=== PATIENT | female | born 1990 | race Caucasian/White ===

== ENCOUNTER 2020-02-24 14:16 | Outpatient (REF) | payer OTHER, SELFPAY | END 2020-02-24 14:17 | disposition home or self-care (01) | LOC: HO.LAB 14:16 | PROVIDERS: Visit Provider Internal Medicine | DX: Z20.828 Contact with and (suspected) exposure to other viral communicable diseases (principal) | CPT/HCPCS: 36415; C9803; U0003 ==

== ENCOUNTER 2020-08-07 17:50 | Emergency (ER) | payer OTHER, SELFPAY ==
[2020-08-07 18:16] VITALS: BP 135/78; PULSE 93; RESP 18; TEMP 36.8; O2SAT 98; BMI 40.7
--- NOTE | 2020-08-07 19:00 | ED_ITS ---
HPI - General Adult General Chief complaint: General Medical Stated complaint: Earache Source: patient Mode of arrival: ambulatory Limitations: no limitations History of Present Illness HPI narrative: Patient presents to ED for right ear pain. Patient states yesterday she went swimming and now she is having right ear pain. Patient states history of recurring ear infections and some a time due to her swim in the pool. Patient denies any bleeding or discharge from the pole Related Data Previous Rx's Medication Instructions Recorded amoxicillin-pot clavulanate 1 tab PO Q12H #20 tab 08/07/20 [Augmentin] naproxen 500 mg PO BID PRN #20 tab 08/07/20 [id number]-thonzonium 4 drp OTIC (EAR) RIGHT QID 7 Days 08/07/20 [Cortisporin-TC] #10 ml Allergies Allergy/AdvReac Type Severity Reaction Status Date / Time No Known Allergies Allergy Unverified 11/04/19 16:20 [No Known Allergies*] Review of Systems Review of Systems: Yes all other systems are reviewed and are negative Constitutional: Constitutional: Reports as per HPI and Reports no additional constitutional complaints Eyes: Eyes: Reports as per HPI and Reports no additional eye complaints ENT: Reports system reviewed and no additional complaints, except as documented, Reports as per HPI and Reports otalgia Cardiovascular: Cardiovascular: Reports as per HPI and Reports no additional cardiovascular complaints Respiratory: Respiratory: Reports as per HPI and Reports no additional respiratory complaints Gastrointestinal: Gastrointestinal: Reports as per HPI and Reports no additional gastrointestinal complaints Musculoskeletal: Musculoskeletal: Reports no additional musculoskeletal complaints and Reports as per HPI Neurologic: Reports system reviewed and no additional complaints, except as documented and Reports as per HPI Psychiatric: Psychiatric: Reports no additional psychiatric complaints and Reports as per HPI [facility] Past Medical History Medical History (Updated 08/07/20 @ 19:06 by MERRICK Kimble) No known health problems Social History Social History Advance Directives: No Advance Directives Information Provided: Yes Patient : No Physical Exam Vital Signs: Vital Signs: Last Vital Signs Temp 98.2 F 08/07/20 18:16 Pulse 93 08/07/20 18:16 Resp 18 08/07/20 18:16 BP 135/78 08/07/20 18:16 Pulse Ox 98 08/07/20 18:16 Body Mass Index 40.7 Const: General: cooperative, healthy appearing, comfortable, no acute distress, well developed, alert, awake and Physically active Orientation/consciousness: patient oriented x3 HENMT: Other: Not able to visualize right TM due to ear canal swelling. Head: Yes normal to inspection, Yes No palpable skull fracture present, Yes normocephalic and Yes atraumatic Ears: Abnormal EAC present erythema and edema Eyes: General: appearance normal, both eyes and all related structures Neck: Neck: Yes normal visual inspection, Yes full ROM, Yes no lymphadenopathy, Yes no meningeal signs, Yes trachea midline, Yes supple and No tender Chest: Chest palpation & inspection: normal inspection of the chest and normal palpation of entire chest wall Resp: Effort & Inspection: normal respiratory effort and able to speak in complete sentences Auscultation: clear to auscultation bilaterally Cardio: Jugular venous distension: no JVD Heart sounds: S1 normal heart sound present and S2 normal heart sound present GI: Inspection: Yes normal to inspection and No abdominal wall ecchymosis Palpation (GI): Soft to palpation, not firm, nontender, no guarding and not rigid : General: No CVA tenderness and Yes no CVA tenderness Back/Spine/Pelvis: Back: no CVA tenderness, No CVA tenderness and No back tenderness Skin: General skin exam: no rashes or lesions noted and elasticity normal Neuro: General: patient oriented x3, gait normal, no meningeal signs and CN's II-XI intact bilaterally Cranial nerves: Yes CN's II-XII intact bilaterally Extrem: General: Yes normal to inspection and Yes full ROM Psych: Appearance: grossly normal, well kempt and not disheveled Course Course Course Narrative: Patient will be treated as ear infection. Reevaluation(s) Reevaluation #1: Patient to be discharged with antibiotics Time: 19:04 Medical Decision Making [facility] Narrative Medical decision making narrative: Otitis media otitis externa Discharge Plan Discharge Clinical Impression: Otitis externa, Otitis media Patient Disposition: Home, Self-Care Instructions: Ear Infection (ED) Additional Instructions: Return to the ED for worsening ear pain, ear drainage, severe pain, swelling in front of behind ear, redness, headache, dizziness, nausea, vomiting, or any other concerning symptoms. Pleaese follow up with PCP. Prescriptions: New amoxicillin-pot clavulanate [Augmentin] 875-125 mg tablet 1 tab PO Q12H Qty: 20 RF: 0 Cortisporin-TC 3.3-3-10-0.5 mg/mL drops,suspension 4 drp otic (ear) right QID 7 Days Qty: 10 RF: 0 naproxen 500 mg tablet 500 mg PO BID PRN (Reason: pain) Qty: 20 RF: 0 Interventions: ED Discharge Assessment Last Done: 08/07/20 19:23 Discharge Date/Time: 08/07/20 19:25 Print Language: Taiwanese
== END 2020-08-07 19:25 | disposition home or self-care (01) ==
PROVIDERS: Emergency Provider Emergency Medicine
DX: H60.91 Unspecified otitis externa, right ear (principal); H66.91 Otitis media, unspecified, right ear
CPT/HCPCS: 99283

== ENCOUNTER 2021-05-04 21:05 | Emergency (ER) | payer OTHER, SELFPAY ==
[2021-05-04 22:05] VITALS: BP 139/61; PULSE 70; TEMP 36.9; O2SAT 97; BMI 34.5
[2021-05-04] MEDS: Ondansetron ODT 4 MG TAB.RAPDIS TRANSLINGU (22:19)
[2021-05-04 22:31] LABS: MANUAL DIFF FLAG NO
[2021-05-04 22:32] LABS: Basophils Absolute Auto 0.1 X10*3/uL (0.0-0.2); Basophils Percent Auto 0.3 % (0-2); Eosinophils Percent Auto 0.1 % (0-4); Hematocrit 46.7 % (37.0-47.0); Hemoglobin 15.4 g/dl (12.0-16.0); Imm Gran Abs Auto 0.08 X10*3/uL (0.00-0.03); Imm Gran Pct Auto 0.5 % (0.0-0.4); Lymphocytes Percent Auto 5.5 % (20-40); Mean Corpuscular Hemoglobin 28.3 pg (27.0-33.0); Mean Corpuscular Volume 85.7 fL (80.0-98.0); Mean Platelet Volume 9.7 fL (9.4-12.3); Monocytes Absolute Auto 0.7 X10*3/uL (0.1-1.2); Monocytes Percent Auto 3.9 % (2-11); Neutrophils Absolute Auto 15.8 x10*3/uL (2.0-8.3); Neutrophils Percent Auto 89.7 % (45-73); Platelet Count 316 X10*3/uL (160-400); Red Blood Count 5.45 X10*6/uL (4.20-5.50); White Blood Count 17.6 X10*3/uL (4.8-10.8)
[2021-05-04 22:45] LABS: Anion Gap 20 (12-20); Blood Urea Nitrogen 13 mg/dL (9-16); Calcium 10.3 mg/dL (8.4-10.2); Carbon Dioxide 22 mmol/L (22-29); Chloride 106 mmol/L (96-108); Creatinine Clr Calc Pharmacy 103.5; Estimated Glomerular Filt Rate > 60; Glucose Random 124 mg/dL (60-115); Sodium 144 mmol/L (135-145)
[2021-05-04 22:47] LABS: COVID-19 Test Negative (Negative)
[2021-05-04 23:59] VITALS: BP 133/104; PULSE 66; RESP 18; TEMP 36.9; O2SAT 96
--- NOTE | 2021-05-05 00:24 | ED_ITS ---
HPI - Nausea/Vomiting/Diarrhea General Chief complaint: Nausea/Vomiting/Diarrhea Stated complaint: Vomiting Time Seen by Provider: 05/05/21 00:23 Source: patient Mode of arrival: ambulatory Limitations: no limitations History of Present Illness HPI Narrative: patient no significant past medical history been vomiting since 07:00 today had multiple episodes of vomiting 1 or 2 small loose bowels does not remember eating any bed foot no recent travel no recent antibiotic use complaining of diffuse abdominal pain no fever or chills no use no flank pain Related Data Previous Rx's Medication Instructions Recorded amoxicillin 875 mg-potassium 1 tab PO Q12H #20 tab 08/07/20 clavulanate 125 mg tablet (Augmentin) naproxen 500 mg tablet 500 mg PO BID PRN #20 tab 08/07/20 [id number]-peuhqz-JR-thonzonm 3.3 4 drp OTIC (EAR) RIGHT QID 7 Days 08/07/20 mg-3 mg-10 mg-0.5 mg/mL ear #10 ml drops,susp (Cortisporin-TC) ondansetron 4 mg disintegrating 4 mg PO Q6-8H PRN #10 tab 05/05/21 tablet Allergies Allergy/AdvReac Type Severity Reaction Status Date / Time No Known Allergies Allergy Unverified 11/04/19 16:20 [No Known Allergies*] Review of Systems Review of Systems: Yes all other systems are reviewed and are negative [facility] Past Medical History Medical History No known health problems Social History Social History Patient Tobacco Use Status: Current everyday Tobacco user Substance Use Type: Marijuana Substance Use Frequency: Daily Last Used Substance: Days (ago) Advance Directives: No Advance Directives Information Provided: No Patient : No Physical Exam Vital Signs: Vital Signs: Last Vital Signs Temp 99.6 F 05/05/21 04:00 Pulse 60 05/05/21 04:00 Resp 15 05/05/21 04:00 BP 113/55 L 05/05/21 04:00 Pulse Ox 97 05/05/21 04:00 BMI result Body Mass Index 34.5 Appearance: Alert. Oriented X3. No acute distress. Eyes: no pallor/icterus ENT: Pharynx normal. Oral Mucosa moist Neck: Normal inspection. Neck supple. CVS: Normal heart rate and rhythm. Pulses normal. Respiratory: No respiratory distress. Equal air entry bilateral, Abdomen: Soft and nontender. no rebound tenderness or guarding Bowel sounds are present, no mass palpable, no CVA tenderness Skin: Skin warm and dry. Normal skin color. Normal skin turgor. Extremities: No lower extremity edema. No calf tenderness Neuro: Oriented X 3. No motor deficit. MDM - Nausea/Vomiting/Diarrhea MDM Narrative Medical decision making narrative: patient felt better after IV fluids taking p.o. fluids now no significant abdominal pain discharge patient home Lab Data Attestation: I reviewed the patient's lab results. Result diagrams: 05/04/21 22:24 05/04/21 22:24 Labs: Lab Results 05/04/21 05/04/21 05/04/21 Range/Units 22:24 22:24 22:24 WBC 17.6 H (4.8-10.8) X10*3/uL RBC 5.45 (4.20-5.50) X10*6/uL Hgb 15.4 (12.0-16.0) g/dl Hct 46.7 (37.0-47.0) % MCV 85.7 (80.0-98.0) fL MCH 28.3 (27.0-33.0) pg MCHC 33.0 (31.0-35.0) g/dl RDW 13.0 (11.0-16.0) % Plt Count 316 (160-400) X10*3/uL MPV 9.7 (9.4-12.3) fL Immature Gran % (Auto) 0.5 H (0.0-0.4) % Neut % (Auto) 89.7 H (45-73) % Lymph % (Auto) 5.5 L (20-40) % [place] % (Auto) 3.9 (2-11) % Eos % (Auto) 0.1 (0-4) % Baso % (Auto) 0.3 (0-2) % Lymph # (Auto) 1.0 L (1.2-4.9) X10*3/uL [place] # (Auto) 0.7 (0.1-1.2) X10*3/uL Eos # (Auto) 0.0 (0.0-0.4) X10*3/uL Baso # (Auto) 0.1 (0.0-0.2) X10*3/uL Abs Immat Gran (auto) 0.08 H (0.00-0.03) X10*3/uL Absolute Neuts (auto) 15.8 H (2.0-8.3) x10*3/uL Absolute Nucleated RBC 0.000 (0.0-0.012) X10*3/uL Nucleated RBC % (auto) 0.0 (0.0-0.2) /100WBC Sodium 144 (135-145) mmol/L Potassium 4.0 (3.3-5.1) mmol/L Chloride 106 (96-108) mmol/L Carbon Dioxide 22 (22-29) mmol/L Anion Gap 20 (12-20) BUN 13 (9-16) mg/dL Creatinine 0.83 (0.5-1.4) mg/dL Estim Creat Clear Calc 103.5 Estimated GFR > 60 Random Glucose 124 H (60-115) mg/dL Calcium 10.3 H (8.4-10.2) mg/dL Total Bilirubin 0.9 (0.0-1.0) mg/dL Direct Bilirubin 0.3 (0.0-0.5) mg/dL AST 15 (5-31) U/L ALT 15 (0-31) U/L Alkaline Phosphatase 63 (39-117) U/L Total Protein 7.6 (6.5-8.0) g/dL Albumin 4.7 (3.5-5.0) g/dL Lipase 13 (8-78) U/L Urine Color Urine Appearance Urine pH (5.0-8.0) Ur Specific [place] (1.005-1.025) Urine Protein (NEG-TRACE) MG/DL Urine Glucose (UA) (NEG) MG/DL Urine Ketones (NEG) MG/DL Urine Blood (NEG) Urine Nitrite (NEG) Ur Leukocyte Esterase (NEG) Urine RBC (0) /HPF Urine WBC (0-4) /HPF Ur Squamous Epith Cells /LPF Urine Bacteria /LPF Urine Mucus /LPF Urine Test (NEGATIVE) COVID-19 (GAIL) Negative (Negative) COVID-19 Clin Com See Note 05/05/21 05/05/21 Range/Units 05:01 05:01 WBC (4.8-10.8) X10*3/uL RBC (4.20-5.50) X10*6/uL Hgb (12.0-16.0) g/dl Hct (37.0-47.0) % MCV (80.0-98.0) fL MCH (27.0-33.0) pg MCHC (31.0-35.0) g/dl RDW (11.0-16.0) % Plt Count (160-400) X10*3/uL MPV (9.4-12.3) fL Immature Gran % (Auto) (0.0-0.4) % Neut % (Auto) (45-73) % Lymph % (Auto) (20-40) % [place] % (Auto) (2-11) % Eos % (Auto) (0-4) % Baso % (Auto) (0-2) % Lymph # (Auto) (1.2-4.9) X10*3/uL [place] # (Auto) (0.1-1.2) X10*3/uL Eos # (Auto) (0.0-0.4) X10*3/uL Baso # (Auto) (0.0-0.2) X10*3/uL Abs Immat Gran (auto) (0.00-0.03) X10*3/uL Absolute Neuts (auto) (2.0-8.3) x10*3/uL Absolute Nucleated RBC (0.0-0.012) X10*3/uL Nucleated RBC % (auto) (0.0-0.2) /100WBC Sodium (135-145) mmol/L Potassium (3.3-5.1) mmol/L Chloride (96-108) mmol/L Carbon Dioxide (22-29) mmol/L Anion Gap (12-20) BUN (9-16) mg/dL Creatinine (0.5-1.4) mg/dL Estim Creat Clear Calc Estimated GFR Random Glucose (60-115) mg/dL Calcium (8.4-10.2) mg/dL Total Bilirubin (0.0-1.0) mg/dL Direct Bilirubin (0.0-0.5) mg/dL AST (5-31) U/L ALT (0-31) U/L Alkaline Phosphatase (39-117) U/L Total Protein (6.5-8.0) g/dL Albumin (3.5-5.0) g/dL Lipase (8-78) U/L Urine Color YELLOW Urine Appearance CLEAR Urine pH 8.0 (5.0-8.0) Ur Specific [place] 1.015 (1.005-1.025) Urine Protein 1+ H (NEG-TRACE) MG/DL Urine Glucose (UA) NEG (NEG) MG/DL Urine Ketones 40 (NEG) MG/DL Urine Blood NEG (NEG) Urine Nitrite NEG (NEG) Ur Leukocyte Esterase NEG (NEG) Urine RBC 1-4 (0) /HPF Urine WBC 1-4 (0-4) /HPF Ur Squamous Epith Cells 2+ /LPF Urine Bacteria 2+ /LPF Urine Mucus 2+ /LPF Urine Test NEGATIVE (NEGATIVE) COVID-19 (GAIL) (Negative) COVID-19 Clin Com Discharge Plan Discharge Clinical Impression: Gastroenteritis Patient Disposition: Home, Self-Care Instructions: Acute Nausea and Vomiting (ED) Additional Instructions: drink plenty of fluid nausea medicine as prescribed follow up with PCP if not better Prescriptions: New ondansetron 4 mg tablet,disintegrating 4 mg PO Q6-8H PRN (Reason: nausea and vomiting) Qty: 10 0RF No Action amoxicillin-pot clavulanate [Augmentin] 875-125 mg tablet 1 tab PO Q12H Qty: 20 0RF Cortisporin-TC 3.3-3-10-0.5 mg/mL drops,suspension 4 drp otic (ear) right QID 7 Days Qty: 10 0RF naproxen 500 mg tablet 500 mg PO BID PRN (Reason: pain) Qty: 20 0RF Interventions: ED Discharge Assessment Last Done: 05/05/21 06:23 Discharge Date/Time: 05/05/21 06:25
[2021-05-05] MEDS: ondansetron HCL 4 MG/2 ML VIAL IVPUSH (00:43)
[2021-05-05] MEDS: 0.9 % Sodium Chloride 1,000 ML 999 ML IV ×2 (00:43→03:55)
[2021-05-05 00:44] VITALS: BP 130/47; PULSE 58; RESP 16; TEMP 37.4; O2SAT 98
[2021-05-05 00:48] LABS: Alanine Aminotransferase 15 U/L (0-31); Albumin Level 4.7 g/dL (3.5-5.0); Alkaline Phosphatase 63 U/L (39-117); Aspartate Amino Transferase 15 U/L (5-31); Bilirubin Direct 0.3 mg/dL (0.0-0.5); Bilirubin Total 0.9 mg/dL (0.0-1.0); Lipase 13 U/L (8-78); Total Protein 7.6 g/dL (6.5-8.0)
[2021-05-05] MEDS: Prochlorperazine Edisylate 10 MG/2 ML VIAL IVPUSH (01:14)
[2021-05-05 01:56] VITALS: RESP 16
[2021-05-05 04:00] VITALS: BP 113/55; PULSE 60; RESP 15; TEMP 37.6; O2SAT 97
--- NOTE | 2021-05-05 04:26 | PC.NURSE ---
pt states she feels better. no nausea or vomitting at present. pt knows she needs to give a urine sample. iv fluids infusing.
[2021-05-05 05:10] LABS: Appearance Urine CLEAR; Color Urine YELLOW; Glucose Urine UA NEG (NEG); Leukocyte Esterase Urine NEG (NEG); Nitrite Urine NEG (NEG); Specific Gravity - Urine 1.015 (1.005-1.025); UACC Culture Trigger NO; Urine Blood NEG (NEG); Urine Ketones 40 MG/DL (NEG); Urine Protein 1+ MG/DL (NEG-TRACE)
[2021-05-05 05:11] LABS: UPreg QC Valid YES; Urine Pregnancy NEGATIVE (NEGATIVE)
[2021-05-05 05:22] LABS: Bacteria Urine 2+ /LPF; Mucus Urine 2+ /LPF; Squamous Epithelial Cell Urine 2+ /LPF
== END 2021-05-05 06:25 | disposition home or self-care (01) ==
PROVIDERS: Emergency Provider Internal Medicine
DX: K52.9 Noninfective gastroenteritis and colitis, unspecified (principal); R11.2 Nausea with vomiting, unspecified; Z20.822 Contact with and (suspected) exposure to COVID-19; F17.200 Nicotine dependence, unspecified, uncomplicated; F12.90 Cannabis use, unspecified, uncomplicated
CPT/HCPCS: 80048; 80076; 81001; 81025; 83690; 85025; 87635; 96361; 96374; 96375; 99284; J2405

== ENCOUNTER 2021-06-28 08:51 | Emergency (ER) | payer OTHER, SELFPAY ==
[2021-06-28 09:36] VITALS: BP 120/54; PULSE 72; RESP 16; TEMP 37; O2SAT 97; BMI 36.1
[2021-06-28 10:08] LABS: COVID-19 Test Negative (Negative)
[2021-06-28 10:26] LABS: IDNOW Serial# 16C4AD1C; Influenza A Negative (Negative); Influenza B2 Negative (Negative)
--- NOTE | 2021-06-28 10:35 | ED_ITS ---
HPI - URI/Sore Throat General Chief Complaint: Upper Respiratory Symptoms Stated Complaint: flu like Time Seen by Provider: 06/28/21 10:35 Source: patient Mode of arrival: ambulatory Limitations: no limitations History of Present Illness HPI Narrative: Patient presents to the emergency department for evaluation of upper respiratory symptoms, cough, nasal congestion x2 days. Her son has been sick with similar symptoms for 4 days. He has been out of school and subsequently she has not been able to work. She denies fevers, shaking chills, ear pain, sore throat, chest pain, palpitations, shortness of breath, difficulty breathing, dyspnea on exertion, nausea, vomiting, abdominal pain, diarrhea, constipation, dysuria, urinary frequency, generalized weakness. MD elicited complaint: cough, rhinorrhea and nasal congestion Onset (ago): day(s) Consistency: constant Severity: mild Description of mucous: clear Able to tolerate fluids by mouth: Yes Exacerbating factors: nothing Treatments prior to arrival: acetaminophen Related Data Previous Rx's Medication Instructions Recorded amoxicillin 875 mg-potassium 1 tab PO Q12H #20 tab 08/07/20 clavulanate 125 mg tablet (Augmentin) naproxen 500 mg tablet 500 mg PO BID PRN #20 tab 08/07/20 [id number]-thonzonm 3.3 4 drp OTIC (EAR) RIGHT QID 7 Days 08/07/20 mg-3 mg-10 mg-0.5 mg/mL ear #10 ml drops,susp (Cortisporin-TC) ondansetron 4 mg disintegrating 4 mg PO Q6-8H PRN #10 tab 05/05/21 tablet Allergies Allergy/AdvReac Type Severity Reaction Status Date / Time No Known Allergies Allergy Verified 06/28/21 09:36 [No Known Allergies*] Review of Systems Review of Systems: Constitutional: No fever. No chills. No weakness. No fatigue. ENT/ Mouth: No Ear Pain, positive Nasal Congestion, no sore throat, No Rhinorrhea, No Swallowing Difficulty Skin: No rash or itching. Cardiovascular: No chest pain. No palpitations. Respiratory: No shortness of breath. Positive cough. No sputum production. Gastrointestinal: No nausea. No vomiting. No diarrhea. No abdominal pain. Genitourinary: No burning micturition. No urinary frequency. Neurologic: No headache. No dizziness. No syncope. No numbness or tingling in the extremities. Musculoskeletal: No muscle pain. No back pain. No joint pain or stiffness. Yes all other systems are reviewed and are negative [facility] Past Medical History Attestation statement: The following information was validated with the patient. Source: old records reviewed Medical History No known health problems Social History Social History Patient Tobacco Use Status: Current everyday Tobacco user Substance Use Type: Marijuana Advance Directives: No Advance Directives Information Provided: No Physical Exam Vital Signs: Vital Signs: Last Vital Signs Temp 98.6 F 06/28/21 09:36 Pulse 72 06/28/21 09:36 Resp 16 06/28/21 09:36 BP 120/54 L 06/28/21 09:36 Pulse Ox 97 06/28/21 09:36 BMI result Body Mass Index 36.1 Vital signs have been reviewed as normal and appeared to be correct. Blood pressure normal.? Heart rate normal.? Respiration rate normal. Temperature normal.? Oxygen saturation normal. Appearance: Alert.?Oriented to person, place and time. No acute distress.?Normal affect. Eyes: Pupils equal, round and reactive to light.? ENT: TM normal bilaterally. Pharynx normal.?? Neck: Normal inspection.? Neck supple.??No cervical adenopathy CVS: Heart sounds normal. Normal heart rate and rhythm.? Pulses normal.?? Respiratory: No respiratory distress.? Lung sounds clear to auscultation bilaterally?? Abdomen: Soft and non-tender. Normoactive bowel sounds. Skin: Skin warm and dry.? Normal skin color.? ? Extremities: No lower extremity edema.? Neuro: Moves all extremities spontaneously. Sensation intact bilaterally. No motor deficits. Ambulates with normal steady gait. Course Course Course Narrative: Patient is a 31-year-old female with no significant past medical history presenting for evaluation of upper respiratory symptoms. COVID-19 testing negative. Influenza testing negative, however, she is here with her son who tested influenza A positive. At this time history and physical exam not consistent with ACS/PE/pneumonia. Well-appearing, nontoxic, afebrile, no tachycardia or tachypnea/hypoxia. Speaking clear full sentences, ambulatory with steady gait. Discussed conservative treatment including rest, hydration, Tylenol/ibuprofen as needed for fever and body aches, saline nasal spray, humidifier, utfr-qny-cjmmhfz cold medication. Advised to follow-up with primary care provider as needed, discussed reasons to return back to the emergency department. All questions were answered. Patient discharged home in stable condition. Provided with a return to work/school note. MDM - URI/Sore Throat Medical Records Attestation: I reviewed the patient's medical records. Lab Data Attestation: I reviewed the patient's lab results. Labs: Lab Results 06/28/21 06/28/21 Range/Units 09:39 09:39 COVID-19 (GAIL) Negative (Negative) COVID-19 Clin Com See Note Influenza Type A (CYNDI) Negative (Negative) Influenza Type B (CYNDI) Negative (Negative) Influenza A & B Note See Note Discharge Plan Discharge Clinical Impression: Upper respiratory infection Patient Disposition: Home, Self-Care Instructions: Upper Respiratory Infection (ED) Additional Instructions: Be sure to rest, stay well hydrated drinking plenty of fluids, eat small frequent meals. Tylenol/ibuprofen can be used as needed for fever/pain. Dimg-fzl-jalafry cold medications may be helpful as well for symptoms. Saline nasal spray, humidifier may be helpful for nasal congestion. You may return to the emergency department with any new or worsening symptoms or concerns. Follow-up with your primary care provider as needed. Should remain out of school/ work until symptoms have resolved and have been without a fever for 24 hours without the use of Tylenol or ibuprofen. Prescriptions: No Action amoxicillin-pot clavulanate [Augmentin] 875-125 mg tablet 1 tab PO Q12H Qty: 20 0RF Cortisporin-TC 3.3-3-10-0.5 mg/mL drops,suspension 4 drp otic (ear) right QID 7 Days Qty: 10 0RF naproxen 500 mg tablet 500 mg PO BID PRN (Reason: pain) Qty: 20 0RF ondansetron 4 mg tablet,disintegrating 4 mg PO Q6-8H PRN (Reason: nausea and vomiting) Qty: 10 0RF Stand Alone Forms: Work/School Release Interventions: ED Discharge Assessment Last Done: 06/28/21 10:58 Discharge Date/Time: 06/28/21 10:59
== END 2021-06-28 10:59 | disposition home or self-care (01) ==
PROVIDERS: Emergency Provider Emergency Medicine
DX: J06.9 Acute upper respiratory infection, unspecified (principal); Z20.822 Contact with and (suspected) exposure to COVID-19
CPT/HCPCS: 87502; 87635; 99283

== ENCOUNTER 2021-10-17 06:47 | Emergency (ER) | payer OTHER, SELFPAY ==
[2021-10-17 06:58] VITALS: BP 117/53; PULSE 65; RESP 18; TEMP 37.3; O2SAT 98; BMI 37.2
[2021-10-17 07:33] LABS: COVID-19 Test Negative (Negative)
--- NOTE | 2021-10-17 07:34 | ED_ITS ---
HPI - General Adult General Chief complaint: General Medical Stated complaint: Fever/Body aches/Chills Time Seen by Provider: 10/17/21 07:34 Source: patient Mode of arrival: ambulatory Limitations: no limitations History of Present Illness HPI narrative: Fever, bodyaches, no energy. Mother in law has COVID. Onset (ago): day(s) Severity: moderate Related Data Previous Rx's Medication Instructions Recorded amoxicillin 875 mg-potassium 1 tab PO Q12H #20 tabs 08/07/20 clavulanate 125 mg tablet (Augmentin) naproxen 500 mg tablet 500 mg PO BID PRN pain #20 tabs 08/07/20 [id number]-LN-thonzonm 3.3 4 drp otic (ear) right QID 7 days 08/07/20 mg-3 mg-10 mg-0.5 mg/mL ear #10 mL drops,susp (Cortisporin-TC) ondansetron 4 mg disintegrating 4 mg PO Q6-8H PRN nausea and 05/05/21 tablet vomiting #10 tabs Allergies Allergy/AdvReac Type Severity Reaction Status Date / Time No Known Allergies Allergy Verified 06/28/21 09:36 [No Known Allergies*] Review of Systems Constitutional: Constitutional: Reports no additional constitutional complaints Eyes: Eyes: Reports no additional eye complaints ENT: Denies dizziness Cardiovascular: Cardiovascular: Reports no additional cardiovascular complaints Respiratory: Respiratory: Reports as per HPI Gastrointestinal: Gastrointestinal: Reports no additional gastrointestinal complaints Genitourinary: Genitourinary: Reports no additional female genitourinary complaints Musculoskeletal: Musculoskeletal: Reports no additional musculoskeletal complaints Integumentary/Breasts: Skin/Breast: Denies rash Neurologic: Reports system reviewed and no additional complaints, except as documented, Denies dizziness and Denies Sensory deficit (Neuro) Psychiatric: Psychiatric: Denies anxiety [facility] Past Medical History Medical History No known health problems Social History Social History Patient Tobacco Use Status: Current everyday Tobacco user Substance Use Type: Marijuana Advance Directives: No Advance Directives Information Provided: No Physical Exam ED Vital Signs: Vital Signs - 24 hr 10/17/21 06:58 Temperature 99.1 F Pulse Rate 65 Respiratory Rate 18 Blood Pressure 117/53 L Pulse Oximetry 98 Oxygen Delivery Method Room Air BMI result Body Mass Index 37.2 Const Nutritional Appearance: average body habitus Orientation/consciousness: oriented to person and patient oriented x3 Limitations: no limitations HENMT Head: Yes normal to inspection Ears: external ears normal General nose exam: Normal external nose present Mouth: Normal oral and palatal mucosa present and oropharynx normal Throat: Yes posterior oropharynx normal Eyes General: appearance normal, both eyes and all related structures Neck Neck: Yes normal visual inspection Chest Chest palpation & inspection: normal inspection of the chest Resp Auscultation: clear to auscultation bilaterally Cardio Jugular venous distension: no JVD Rate: regular rate Rhythm: regular rhythm Heart sounds: S1 normal heart sound present and S2 normal heart sound present GI Inspection: Yes normal to inspection Palpation (GI): Soft to palpation, nontender and No hepatosplenomegaly present Auscultation: normal bowel sounds General: Yes no CVA tenderness Back/Spine/Pelvis Back: no CVA tenderness Skin General skin exam: no rashes or lesions noted Neuro General: oriented to person and patient oriented x3 Cranial nerves: Yes CN's II-XII intact bilaterally Motor exam (neuro): 5/5 motor strength present throughout Sensory Exam: No Sensory deficit (Neuro) Extrem General: Yes normal to inspection Psych Appearance: grossly normal Course Reevaluation(s) Reevaluation #1: despite a negative COVID patient with symptomatology of COVID. will dc home on tylenol and motrin Time: 08:43 Medical Decision Making Lab Data Labs: Lab Results 10/17/21 10/17/21 Range/Units 07:11 07:11 COVID-19 (GAIL) Negative (Negative) COVID-19 Clin Com See Note Influenza Type A (CYNDI) Negative (Negative) Influenza Type B (CYNDI) Negative (Negative) Influenza A & B Note See Note Discharge Plan Discharge Clinical Impression: COVID, Viral illness Patient Disposition: Home, Self-Care Instructions: Viral Syndrome (ED), COVID-19 (Coronavirus Disease 2019) (ED) Additional Instructions: alternate tylenol and motrin for fever and bodyaches Prescriptions: No Action amoxicillin-pot clavulanate [Augmentin] 875-125 mg tablet 1 tab PO Q12H Qty: 20 0RF Cortisporin-TC 3.3-3-10-0.5 mg/mL drops,suspension 4 drp otic (ear) right QID 7 Days Qty: 10 0RF naproxen 500 mg tablet 500 mg PO BID PRN (Reason: pain) Qty: 20 0RF ondansetron 4 mg tablet,disintegrating 4 mg PO Q6-8H PRN (Reason: nausea and vomiting) Qty: 10 0RF Referrals: Physician,None [Primary Care Provider] - 1 week Stand Alone Forms: Work/School Release Interventions: ED Discharge Assessment Last Done: 10/17/21 09:01 Discharge Date/Time: 10/17/21 09:01
[2021-10-17 07:43] LABS: IDNOW Serial# 55D5AD1C
[2021-10-17 07:44] LABS: Influenza A Negative (Negative); Influenza B2 Negative (Negative)
[2021-10-17] MEDS: Ibuprofen 600 MG TABLET PO (07:52)
== END 2021-10-17 09:01 | disposition home or self-care (01) ==
PROVIDERS: Emergency Provider Emergency Medicine
DX: R50.9 Fever, unspecified (principal); M79.10 Myalgia, unspecified site; F17.210 Nicotine dependence, cigarettes, uncomplicated; Z20.822 Contact with and (suspected) exposure to COVID-19; Z71.6 Tobacco abuse counseling; Z79.899 Other long term (current) drug therapy
CPT/HCPCS: 87502; 87635; 99283

== ENCOUNTER → 2021-12-18 12:42 | Outpatient (BNVA) | payer OTHER, SELFPAY | PROVIDERS: Visit Provider Physician Assistant Medical | DX: S30.1XXA Contusion of abdominal wall, initial encounter (principal); Y04.2XXA Assault by strike against or bumped into by another person, initial encounter | CPT/HCPCS: 99202 ==

== ENCOUNTER 2021-12-18 13:44 | Emergency (ER) | payer OTHER, SELFPAY ==
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
[2021-12-18 13:51] VITALS: BP 127/58; PULSE 72; RESP 18; TEMP 36.6; O2SAT 99; BMI 38.6
--- NOTE | 2021-12-18 14:14 | PC.NURSE ---
spoke w dr kessler, ct ordered, iv placed, pt aware of care plan
[2021-12-18 14:15] LABS: Basophils Absolute Auto 0.1 X10*3/uL (0.0-0.2); Basophils Percent Auto 0.5 % (0-2); Eosinophils Absolute Auto 0.1 X10*3/uL (0.0-0.4); Eosinophils Percent Auto 1.3 % (0-4); Hematocrit 40.6 % (37.0-47.0); Hemoglobin 13.2 g/dl (12.0-16.0); Imm Gran Abs Auto 0.02 X10*3/uL (0.00-0.03); Imm Gran Pct Auto 0.2 % (0.0-0.4); Lymphocytes Absolute Auto 2.1 X10*3/uL (1.2-4.9); Lymphocytes Percent Auto 21.1 % (20-40); MANUAL DIFF FLAG NO; Mean Corpuscular HGB Conc 32.5 g/dl (31.0-35.0); Mean Corpuscular Hemoglobin 28.5 pg (27.0-33.0); Mean Corpuscular Volume 87.7 fL (80.0-98.0); Mean Platelet Volume 9.3 fL (9.4-12.3); Monocytes Absolute Auto 0.7 X10*3/uL (0.1-1.2); Monocytes Percent Auto 6.8 % (2-11); Neutrophils Absolute Auto 6.9 x10*3/uL (2.0-8.3); Neutrophils Percent Auto 70.1 % (45-73); Platelet Count 254 X10*3/uL (160-400); Red Blood Count 4.63 X10*6/uL (4.20-5.50); Red Cell Distribution Width 12.7 % (11.0-16.0); White Blood Count 9.8 X10*3/uL (4.8-10.8)
[2021-12-18 14:17] LABS: Appearance Urine Cloudy; Color Urine Yellow; Glucose Urine UA Negative (Negative); Leukocyte Esterase Urine Small (1+) (Negative); Nitrite Urine Negative (Negative); PH 6.5 (5.0-9.0); Specific Gravity - Urine 1.025 (1.005-1.025); UMIC TRIGGER UACC YES; Urine Blood Negative (Negative); Urine Ketones Negative (Negative); Urine Protein Negative (Neg-Trace)
[2021-12-18 14:18] LABS: UPreg QC Valid YES; Urine Pregnancy NEGATIVE (NEGATIVE)
[2021-12-18 14:32] LABS: Alanine Aminotransferase 13 U/L (0-31); Albumin Level 4.5 g/dL (3.5-5.0); Alkaline Phosphatase 61 U/L (39-117); Anion Gap 17 (12-20); Aspartate Amino Transferase 15 U/L (5-31); Bilirubin Direct 0.2 mg/dL (0.0-0.5); Bilirubin Total 0.3 mg/dL (0.0-1.0); Blood Urea Nitrogen 15 mg/dL (9-16); Calcium 9.6 mg/dL (8.4-10.2); Carbon Dioxide 26 mmol/L (22-29); Chloride 104 mmol/L (96-108); Creatinine Clr Calc Pharmacy 122.4; Estimated Glomerular Filt Rate > 60; Glucose Random 84 mg/dL (60-115); Lipase 30 U/L (8-78); Potassium 4.1 mmol/L (3.3-5.1); Sodium 143 mmol/L (135-145); Total Protein 6.7 g/dL (6.5-8.0)
[2021-12-18 14:33] LABS: Bacteria Urine 2+ (None Seen); Hyaline Casts Urine 0-2 /LPF (0-2); UACC Culture Trigger YES; WBC Urine 0-5 /HPF (0-5)
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
[2021-12-18 16:13] VITALS: RESP 16
[2021-12-18] MEDS: ondansetron HCL 4 MG/2 ML VIAL IVPUSH (16:13)
[2021-12-18] MEDS: Morphine Sulfate 4 MG/ML CARTRIDGE IVPUSH (16:13)
[2021-12-18] MEDS: iohexoL 350 MG/ML 100 ML INFUS..BTL 85 ML IV (16:34)
== END 2021-12-18 17:40 | disposition home or self-care (01) ==
PROVIDERS: Emergency Provider Emergency Medicine
DX: S30.1XXA Contusion of abdominal wall, initial encounter (principal); S20.212A Contusion of left front wall of thorax, initial encounter; Y04.2XXA Assault by strike against or bumped into by another person, initial encounter; F17.200 Nicotine dependence, unspecified, uncomplicated; F12.90 Cannabis use, unspecified, uncomplicated; Y93.89 Activity, other specified; Y92.211 Elementary school as the place of occurrence of the external cause; Y99.0 Civilian activity done for income or pay
CPT/HCPCS: 36415; 71260; 74177; 80048; 80076; 81001; 81025; 83690; 85025; 87086; 96374; 96375; 99282; 99284; J2270; J2405; Q9967

== ENCOUNTER 2023-02-15 09:19 | Emergency (ER) | payer OTHER, SELFPAY ==
[2023-02-15 09:36] VITALS: BP 106/58; PULSE 61; RESP 20; TEMP 36.1; O2SAT 97; BMI 40.8
--- NOTE | 2023-02-15 10:00 | ED_ITS ---
HPI - Eye Problem General Chief complaint: Eye Problems Stated complaint: pink eye Time Seen by Provider: 02/15/23 09:55 Source: patient Mode of arrival: ambulatory Limitations: no limitations History of Present Illness HPI Narrative: patient is a 32-year-old female presents emergency department for evaluation of left eye redness, irritation, and purulent discharge. Onset of symptoms was morning. Had to moisten the eyelashes in order to open the eye. Denies any known contacts. Denies any trauma to the eye. Does not wear contact lenses. Denies vision changes. Denies URI symptoms. Related Data Previous Rx's Medication Instructions Recorded amoxicillin 875 mg-potassium 1 tab PO Q12H #20 tabs 08/07/20 clavulanate 125 mg tablet (Augmentin) naproxen 500 mg tablet 500 mg PO BID PRN pain #20 tabs 08/07/20 [id number] 3.3 4 drp otic (ear) right QID 7 days 08/07/20 mg-3 mg-10 mg-0.5 mg/mL ear #10 mL drops,susp (Cortisporin-TC) ondansetron 4 mg disintegrating 4 mg PO Q6-8H PRN nausea and 05/05/21 tablet vomiting #10 tabs ofloxacin 0.3 % eye drops (Ocuflox) See Rx Instructions ophthalmic 02/15/23 (eye) .COMPLEX #5 mL Allergies Allergy/AdvReac Type Severity Reaction Status Date / Time No Known Allergies Allergy Verified 02/15/23 09:38 [No Known Allergies*] Review of Systems Review of Systems: Yes all other systems are reviewed and are negative PMFSH Past Medical History Attestation statement: The following information was validated with the patient. Source: old records reviewed Medical History No known health problems Social History Social History Patient Tobacco Use Status: Current everyday Tobacco user Substance Use Type: Marijuana Physical Exam Vital Signs: Vital Signs: Last Vital Signs Temp 97.0 F 02/15/23 09:36 Pulse 61 02/15/23 09:36 Resp 20 02/15/23 09:36 BP 106/58 L 02/15/23 09:36 Pulse Ox 97 02/15/23 09:36 O2 Del Method Room Air 02/15/23 09:36 BMI result Body Mass Index 40.8 Appearance: Alert.?Oriented to person, place and time. No acute distress.?Normal affect. Eyes: Pupils equal, round and reactive to light.? EOMI. No nystagmus. Conjunctival erythema, purulent discharge along the lower lashes. No hordeolum/chalazion ENT: Pharynx normal.?? Neck: Normal inspection.? Neck supple.?? CVS: Heart sounds normal. Normal heart rate and rhythm.? Pulses normal.?? Respiratory: No respiratory distress.? Lung sounds clear to auscultation bilater ally?? Abdomen: Soft and non-tender. Normoactive bowel sounds. Skin: Skin warm and dry.? Normal skin color.? Extremities: No lower extremity edema.? Neuro: Moves all extremities spontaneously. Sensation intact bilaterally. No focal neuro deficits. Ambulates with normal steady gait. Medical Decision Making Medical Decision Making MDM Narrative: patient is a 32-year-old female who presents emergency department for evaluation of left eye concern as per HPI. Overall she is well-appearing, nontoxic, afebrile. Physical examination is most consistent with a bacterial conjunctivitis to the left eye. No evidence of orbital or periorbital cellulitis, less likely scleritis, uveitis. No trauma or injury, lower suspicion for corneal abrasion/ ulceration. At this time she is stable for discharge home, discussed conservative treatment in addition to prescription for ofloxacin drops which were sent pharmacy. Outpatient follow-up with primary care provider. Differential Diagnosis Differential Diagnoses: The differential diagnosis associated with the presentation includes ( As noted above) External Record Review External record reviewed: Outpatient record Prescription Management I considered prescription management with: Antibiotic Discharge Plan Discharge Clinical Impression: Bacterial conjunctivitis Patient Disposition: Home, Self-Care Instructions: Conjunctivitis (ED) Additional Instructions: be sure to focus on strict handwashing, and avoiding touching the eye. Apply warm moist compresses and perform lid scrubs ( moist towel with non scented / Baby shampoo to scrub the lids ) complete course of antibiotic eyedrops as prescribed. Follow-up with your primary care provider. Prescriptions: New ofloxacin [Ocuflox] 0.3 % drops See Rx Instructions .ROUTE .COMPLEX Qty: 5 0RF Rx Instructions: put 1-2 drps into affected eye(s) every 2-4 h x 2 days, then 1-2 drps 4 times/day days 3-7 No Action amoxicillin-pot clavulanate [Augmentin] 875-125 mg tablet 1 tab PO Q12H Qty: 20 0RF Cortisporin-TC 3.3-3-10-0.5 mg/mL drops,suspension 4 drp otic (ear) right QID 7 Days Qty: 10 0RF naproxen 500 mg tablet 500 mg PO BID PRN (Reason: pain) Qty: 20 0RF ondansetron 4 mg tablet,disintegrating 4 mg PO Q6-8H PRN (Reason: nausea and vomiting) Qty: 10 0RF Referrals: Physician,Unknown J [Primary Care Provider] -
== END 2023-02-15 10:36 | disposition home or self-care (01) ==
PROVIDERS: Emergency Provider Emergency Medicine
DX: H10.9 Unspecified conjunctivitis (principal); Z79.899 Other long term (current) drug therapy
CPT/HCPCS: 99283

== ENCOUNTER 2023-05-19 06:46 | Emergency (ER) | payer OTHER, SELFPAY ==
[2023-05-19 06:50] VITALS: BP 106/50; PULSE 43; RESP 18; TEMP 36.6; O2SAT 96; BMI 40.3
--- NOTE | 2023-05-19 07:22 | ED.GENADULT ---
HPI - General Adult General Chief complaint: Ear Problems Stated complaint: R ear pain Time Seen by Provider: 05/19/23 07:13 History of Present Illness HPI narrative: Patient is a 33-year-old woman who says that yesterday she started developing pain in her right ear that made her think she was having an ear infection. She says that she is prone to external ear infections during summertime when she swims a lot but she does not usually get ear infections at other times of the year. She did not really have any antecedent upper respiratory symptoms. No significant runny nose or cough or sputum. No fever, sweats, chills. Related Data Previous Rx's Medication Instructions Recorded amoxicillin 875 mg-potassium 1 tab PO Q12H #20 tabs 08/07/20 clavulanate 125 mg tablet (Augmentin) naproxen 500 mg tablet 500 mg PO BID PRN pain #20 tabs 08/07/20 [id number] 3.3 4 drp otic (ear) right QID 7 days 08/07/20 mg-3 mg-10 mg-0.5 mg/mL ear #10 mL drops,susp (Cortisporin-TC) ondansetron 4 mg disintegrating 4 mg PO Q6-8H PRN nausea and 05/05/21 tablet vomiting #10 tabs ofloxacin 0.3 % eye drops (Ocuflox) See Rx Instructions ophthalmic 02/15/23 (eye) .COMPLEX #5 mL ibuprofen 600 mg tablet 600 mg PO Q6H PRN pain #14 tabs 05/19/23 Allergies Allergy/AdvReac Type Severity Reaction Status Date / Time No Known Allergies Allergy Verified 05/19/23 06:48 [No Known Allergies*] Review of Systems Review of Systems: Yes all other systems are reviewed and are negative PMFSH Past Medical History Medical History No known health problems Social History Social History Patient Tobacco Use Status: Current everyday Tobacco user Substance Use Type: Marijuana Advance Directives: No Advance Directives Information Provided: No Physical Exam ED Vital Signs: Vital Signs - 24 hr 05/19/23 06:50 Temperature 97.9 F Pulse Rate 43 L Respiratory Rate 18 Blood Pressure 106/50 L Pulse Oximetry 96 Oxygen Delivery Method Room Air BMI result Body Mass Index 40.3 Const Other: The patient is awake, alert, pleasant, cooperative. She does not appear in obvious distress. She does not look obviously ill HENMT Other: Tympanic membranes are normal bilaterally. External auditory meati are bilaterally. No intraoral swelling. The posterior pharynx is unremarkable. No obvious dental source of pain. There is no trismus. The patient is quite tender with palpation of the right TMJ, especially when palpated while she is closing her mouth. Eyes Other: Pupils are round equal, conjunctivae are clear Neck Other: No cervical adenopathy appreciated. Moving her neck easily. Resp Effort & Inspection: normal respiratory effort Auscultation: clear to auscultation bilaterally Cardio Rate: regular rate Rhythm: regular rhythm Heart sounds: S1 normal heart sound present and S2 normal heart sound present Skin Other: Skin is dry and unremarkable Neuro Other: The patient is awake and alert with a normal mental status. Demeanor is nontoxic. She is grossly neurologically intact. Extrem Other: No peripheral edema Medical Decision Making Medical Decision Making MDM Narrative: The patient is a 33-year-old woman who is generally in fairly good health who presents for evaluation of right ear pain. Her tympanic membrane and ear canal are completely normal. Her posterior pharynx is unremarkable. Her dentition shows no obvious signs of a dental sign of pain. She is quite tender with palpation of the temporomandibular joint on the right side when she closes her mouth. There is no cervical adenopathy. My overall impression is that the patient is having right-sided TMJ syndrome pain. She will be advised to use ibuprofen and acetaminophen. She has just gotten health her insight does not have a PCP. She is encouraged to get a PCP. Last saw a dentist about a year ago. She is advised to contact the dentist to see if she can get in for a 2nd opinion with a dentist. She should return if worse. The patient requested a work note for today. This was provided. Discharge Plan Discharge Clinical Impression: Right-sided temporomandibular joint pain-dysfunction syndrome Patient Disposition: Home, Self-Care Instructions: Temporomandibular Disorder (ED) Additional Instructions: Your eardrums and your ear canals look good. I do not think you have an ear infection. In the right temporomandibular joint. This is often experienced as ear pain. I believe you have something called temporomandibular joint syndrome. This is often short to TMJ syndrome. You may use ibuprofen and acetaminophen as needed for pain. I think it would be good for you to see your dentist for a secondnd opinion. Please work on getting a regular doctor. Return to the emergency room if worse. Prescriptions: New ibuprofen 600 mg tablet 600 mg PO Q6H PRN (Reason: pain) Qty: 14 0RF No Action amoxicillin-pot clavulanate [Augmentin] 875-125 mg tablet 1 tab PO Q12H Qty: 20 0RF Cortisporin-TC 3.3-3-10-0.5 mg/mL drops,suspension 4 drp otic (ear) right QID 7 Days Qty: 10 0RF naproxen 500 mg tablet 500 mg PO BID PRN (Reason: pain) Qty: 20 0RF ondansetron 4 mg tablet,disintegrating 4 mg PO Q6-8H PRN (Reason: nausea and vomiting) Qty: 10 0RF ofloxacin [Ocuflox] 0.3 % drops See Rx Instructions .ROUTE .COMPLEX Qty: 5 0RF Rx Instructions: put 1-2 drps into affected eye(s) every 2-4 h x 2 days, then 1-2 drps 4 times/day days 3-7 Stand Alone Forms: Work/School Release
[2023-05-19] MEDS: Ketorolac Tromethamine 30 MG/ML VIAL IM (07:32)
[2023-05-19 07:43] VITALS: BP 106/50; PULSE 43; RESP 18; TEMP 36.6; O2SAT 96
== END 2023-05-19 07:45 | disposition home or self-care (01) ==
PROVIDERS: Emergency Provider Emergency Medicine
DX: M26.621 Arthralgia of right temporomandibular joint (principal); H92.01 Otalgia, right ear; Z79.899 Other long term (current) drug therapy
CPT/HCPCS: 96372; 99283; 99284; J1885

== ENCOUNTER 2023-07-08 10:28 | Emergency (ER) | payer OTHER, SELFPAY ==
[2023-07-08 10:33] VITALS: BP 100/35; PULSE 74; RESP 16; TEMP 36.8; O2SAT 97; BMI 39.8
[2023-07-08 11:01] LABS: MANUAL DIFF FLAG NO
[2023-07-08 11:05] LABS: Basophils Absolute Auto 0.1 X10*3/uL (0.0-0.2); Basophils Percent Auto 0.5 % (0-2); Eosinophils Absolute Auto 0.1 X10*3/uL (0.0-0.4); Eosinophils Percent Auto 1.3 % (0-4); Hematocrit 41.3 % (37.0-47.0); Hemoglobin 13.6 g/dl (12.0-16.0); Imm Gran Abs Auto 0.03 X10*3/uL (0.00-0.03); Imm Gran Pct Auto 0.3 % (0.0-0.4); Lymphocytes Absolute Auto 1.9 X10*3/uL (1.2-4.9); Mean Corpuscular HGB Conc 32.9 g/dl (31.0-35.0); Mean Corpuscular Hemoglobin 28.9 pg (27.0-33.0); Mean Corpuscular Volume 87.7 fL (80.0-98.0); Mean Platelet Volume 10.1 fL (9.4-12.3); Monocytes Absolute Auto 0.4 X10*3/uL (0.1-1.2); Monocytes Percent Auto 4.4 % (2-11); Neutrophils Absolute Auto 6.7 x10*3/uL (2.0-8.3); Neutrophils Percent Auto 72.5 % (45-73); Platelet Count 247 X10*3/uL (160-400); Red Blood Count 4.71 X10*6/uL (4.20-5.50); Red Cell Distribution Width 12.4 % (11.0-16.0); White Blood Count 9.2 X10*3/uL (4.8-10.8)
[2023-07-08 11:10] LABS: Appearance Urine Turbid; Color Urine Dark Yellow; Glucose Urine UA Negative (Negative); Leukocyte Esterase Urine Moderate (2+) (Negative); Nitrite Urine Negative (Negative); PH >= 9.0 (5.0-9.0); Specific Gravity - Urine 1.025 (1.005-1.025); UMIC TRIGGER UACC YES; Urine Blood Negative (Negative); Urine Ketones Trace mg/dL (Negative); Urine Protein 30 (1+) mg/dL (Neg-Trace)
[2023-07-08 11:29] LABS: Anion Gap 14 (12-20); Blood Urea Nitrogen 11 mg/dL (9-16); Calcium 9.3 mg/dL (8.4-10.2); Carbon Dioxide 25 mmol/L (22-29); Chloride 109 mmol/L (96-108); Creatinine Clr Calc Pharmacy 120.4; Estimated Glomerular Filt Rate > 60; Glucose Random 134 mg/dL (60-115); Potassium 4.1 mmol/L (3.3-5.1); Sodium 144 mmol/L (135-145)
[2023-07-08 11:30] LABS: Bacteria Urine 4+ (None Seen); Hyaline Casts Urine 0-2 /LPF (0-2); RBC Urine 0-2 /HPF (0-2); Squamous Epithelial Cell Urine >20 /HPF (0-2); UACC Culture Trigger YES; WBC Urine 21-50 /HPF (0-5)
[2023-07-08 11:32] LABS: HCG Quantitative < 2 mIU/mL
[2023-07-08 11:37] LABS: Alanine Aminotransferase 13 U/L (0-31); Albumin Level 4.2 g/dL (3.5-5.0); Alkaline Phosphatase 55 U/L (39-117); Aspartate Amino Transferase 13 U/L (5-31); Bilirubin Direct 0.1 mg/dL (0.0-0.5); Bilirubin Total 0.4 mg/dL (0.0-1.0); Lipase 17 U/L (8-78); Total Protein 6.7 g/dL (6.5-8.0)
--- NOTE | 2023-07-08 12:49 | ED_ITS ---
HPI - Nausea/Vomiting/Diarrhea General Chief complaint: Nausea/Vomiting/Diarrhea Stated complaint: Vomiting Time Seen by Provider: 07/08/23 12:48 Source: patient and family Mode of arrival: ambulatory Limitations: no limitations History of Present Illness ED Provider: DALI LOCKETT Narrative: 33 yo female with PMH of opiate use disorder doing well on 2 months of sublocaide injections here with c/o n/v in AM x 2 days no abdominal pain no diarrhea, no fevers. Feels fine by the afternoon. May have mild heartburn symptoms no new changes in meds or lifestyle does not take NSAIDs, no GIB symptoms. MD elicited complaint: nausea Onset (ago): day(s) (2) Description of vomiting: food contents and watery Associated nausea: Yes Associated abdominal pain: No Severity: mild Exacerbating factors: eating Relieving factors: none Associated symptoms: denies other symptoms Related Data Previous Rx's ?Medication ?Instructions ?Recorded amoxicillin 875 mg-potassium 1 tab PO Q12H #20 tabs 08/07/20 clavulanate 125 mg tablet (Augmentin) naproxen 500 mg tablet 500 mg PO BID PRN pain #20 tabs 08/07/20 [id number]-thonzonm 3.3 4 drp otic (ear) right QID 7 days 08/07/20 mg-3 mg-10 mg-0.5 mg/mL ear #10 mL drops,susp (Cortisporin-TC) ondansetron 4 mg disintegrating 4 mg PO Q6-8H PRN nausea and 05/05/21 tablet vomiting #10 tabs ofloxacin 0.3 % eye drops (Ocuflox) See Rx Instructions ophthalmic 02/15/23 (eye) .COMPLEX #5 mL ibuprofen 600 mg tablet 600 mg PO Q6H PRN pain #14 tabs 05/19/23 omeprazole 20 mg capsule,delayed 20 mg PO DAILY #60 caps 07/08/23 release ondansetron 4 mg disintegrating 4 mg PO Q8H PRN nausea and 07/08/23 tablet vomiting #20 tabs Allergies Allergy/AdvReac Type Severity Reaction Status Date / Time No Known Allergies Allergy Verified 07/08/23 10:34 [No Known Allergies*] Review of Systems 2 Review of Systems: Constitutional : No Weight loss, No Fever, No Chills ENT/Mouth : No sore throat, No Rhinorrhea Eyes: No Swelling, No Redness Cardiovascular : No Chest Pain, No SOB, NoEdema Respiratory : No Cough, No Sputum, No Wheezing Gastrointestinal : Positive Nausea, no Vomiting, no Diarrhea, no abdominal Pain, No Hematochezia, No Melena Genitourinary : No Dysuria, No Urinary Frequency, No Hematuria, No Urgency Musculoskeletal : No joint pain, No Myalgias, No Joint Swelling Skin : No Skin Lesions, No rash Neuro : No Weakness, No Numbness, No Dizziness, No Headache Psych : No Anxiety/Panic, No Depression All other systems reviewed and are negative. Gastrointestinal: Gastrointestinal: Reports nausea PMFSH Past Medical History Attestation statement: The following information was validated with the patient. Source: old records reviewed Medical History No known health problems Social History Social History Patient Tobacco Use Status: Current everyday Tobacco user Substance Use Type: Marijuana Physical Exam 2 Vital Signs: Vital Signs: Last Vital Signs Temp 98.3 F 07/08/23 10:33 Pulse 74 07/08/23 10:33 Resp 16 07/08/23 10:33 BP 100/35 L 07/08/23 10:33 Pulse Ox 97 07/08/23 10:33 O2 Del Method Room Air 07/08/23 10:33 BMI result Body Mass Index 39.8 Appearance: Alert. Oriented X3. No acute distress. Eyes: Pupils equal, round and reactive to light. ENT: Pharynx normal. Neck: Normal inspection. Neck supple. CVS: Normal heart rate and rhythm. Pulses normal. Respiratory: No respiratory distress. Breath sounds normal. Abdomen: Soft and nontender. neg baires's sign Skin: Skin warm and dry. Normal skin color. Normal skin turgor. Extremities: No lower extremity edema. No calf ttp Neuro: Oriented X 3. No motor deficit. No sensory deficit. Medical Decision Making Medical Decision Making [facility] Narrative: 33 yo female here with unexplained AM n/v but no abdominal pain GIB symptoms no NSAID use does have mild heartburn at this time will need labs, test given her symptoms and no pain on exam it is reasonable to try PPI and refer to PCP for h. pylori testing with precautions to return. No pain doubt appendicitis, renal colic, biliary colic, pancreatitis. Has no urinary symptoms - UA contaminated. Differential Diagnosis Differential Diagnoses: The differential diagnosis associated with the presentation includes GERD, , esophagitis Lab Data MDM Lab Attestation statement: I reviewed the patient's lab results. 07/08/23 10:46 07/08/23 10:46 Labs: Lab Results 07/08/23 07/08/23 Range/Units 10:46 11:00 WBC 9.2 (4.8-10.8) X10*3/uL RBC 4.71 (4.20-5.50) X10*6/uL Hgb 13.6 (12.0-16.0) g/dl Hct 41.3 (37.0-47.0) % MCV 87.7 (80.0-98.0) fL MCH 28.9 (27.0-33.0) pg MCHC 32.9 (31.0-35.0) g/dl RDW 12.4 (11.0-16.0) % Plt Count 247 (160-400) X10*3/uL MPV 10.1 (9.4-12.3) fL Immature Gran % (Auto) 0.3 (0.0-0.4) % Neut % (Auto) 72.5 (45-73) % Lymph % (Auto) 21.0 (20-40) % [place] % (Auto) 4.4 (2-11) % Eos % (Auto) 1.3 (0-4) % Baso % (Auto) 0.5 (0-2) % Lymph # (Auto) 1.9 (1.2-4.9) X10*3/uL [place] # (Auto) 0.4 (0.1-1.2) X10*3/uL Eos # (Auto) 0.1 (0.0-0.4) X10*3/uL Baso # (Auto) 0.1 (0.0-0.2) X10*3/uL Abs Immat Gran (auto) 0.03 (0.00-0.03) X10*3/uL Absolute Neuts (auto) 6.7 (2.0-8.3) x10*3/uL Absolute Nucleated RBC 0.000 (0.0-0.012) X10*3/uL Nucleated RBC % (auto) 0.0 (0.0-0.2) /100WBC Sodium 144 (135-145) mmol/L Potassium 4.1 (3.3-5.1) mmol/L Chloride 109 H (96-108) mmol/L Carbon Dioxide 25 (22-29) mmol/L Anion Gap 14 (12-20) BUN 11 (9-16) mg/dL Creatinine 0.75 (0.5-1.4) mg/dL Estim Creat Clear Calc 120.4 Estimated GFR > 60 Random Glucose 134 H (60-115) mg/dL Calcium 9.3 (8.4-10.2) mg/dL Total Bilirubin 0.4 (0.0-1.0) mg/dL Direct Bilirubin 0.1 (0.0-0.5) mg/dL AST 13 (5-31) U/L ALT 13 (0-31) U/L Alkaline Phosphatase 55 (39-117) U/L Total Protein 6.7 (6.5-8.0) g/dL Albumin 4.2 (3.5-5.0) g/dL Lipase 17 (8-78) U/L Beta HCG, Quant < 2 mIU/mL Urine Color Dark Yellow Urine Appearance Turbid Urine pH >= 9.0 (5.0-9.0) Ur Specific [place] 1.025 (1.005-1.025) Urine Protein 30 (1+) H (Neg-Trace) mg/dL Urine Glucose (UA) Negative (Negative) mg/dL Urine Ketones Trace (Negative) mg/dL Urine Blood Negative (Negative) Urine Nitrite Negative (Negative) Ur Leukocyte Esterase Moderate (2+) H (Negative) Urine RBC 0-2 (0-2) /HPF Urine WBC 21-50 H (0-5) /HPF Ur Squamous Epith Cells >20 (0-2) /HPF Urine Bacteria 4+ (None Seen) Hyaline Casts 0-2 (0-2) /LPF Independent Historian Clinical information obtained from an independent historian. History obtained from or confirmed by: Parent Prescription Management I considered prescription management with: Other Discharge Plan Discharge Clinical Impression: Vomiting Qualifiers: Vomiting type: unspecified Nausea presence: with nausea Qualified Code(s): R 11.2 - Nausea with vomiting, unspecified Patient Disposition: Home, Self-Care Instructions: Diet for Stomach Ulcers and Gastritis (ED), Acute Nausea and Vomiting (ED) Additional Instructions: labs reassuring no anemia, normal kidney function, normal liver and pancreas tests for the first week take omeprazole twice a day then for the next 1 month take it daily follow up with your primary care doctor for possible h pylori testing return for worsening symptoms, fevers, vomiting, bloody/black stools or any other concerns. Prescriptions: New omeprazole 20 mg capsule,delayed release(DR/EC) 20 mg PO DAILY Qty: 60 0RF ondansetron 4 mg tablet,disintegrating 4 mg PO Q8H PRN (Reason: nausea and vomiting) Qty: 20 0RF No Action amoxicillin-pot clavulanate [Augmentin] 875-125 mg tablet 1 tab PO Q12H Qty: 20 0RF Cortisporin-TC 3.3-3-10-0.5 mg/mL drops,suspension 4 drp otic (ear) right QID 7 Days Qty: 10 0RF naproxen 500 mg tablet 500 mg PO BID PRN (Reason: pain) Qty: 20 0RF ondansetron 4 mg tablet,disintegrating 4 mg PO Q6-8H PRN (Reason: nausea and vomiting) Qty: 10 0RF ofloxacin [Ocuflox] 0.3 % drops See Rx Instructions .ROUTE .COMPLEX Qty: 5 0RF Rx Instructions: put 1-2 drps into affected eye(s) every 2-4 h x 2 days, then 1-2 drps 4 times/day days 3-7 ibuprofen 600 mg tablet 600 mg PO Q6H PRN (Reason: pain) Qty: 14 0RF Print Language: Japanese
[2023-07-08 13:15] VITALS: BP 106/54; PULSE 58; RESP 18; TEMP 36.9; O2SAT 97
[2023-07-08 13:20] VITALS: BP 106/54; PULSE 58; RESP 18; TEMP 36.9; O2SAT 97
== END 2023-07-08 13:21 | disposition home or self-care (01) ==
LOC: HO.ED 13:11
PROVIDERS: Emergency Provider Emergency Medicine
DX: R11.2 Nausea with vomiting, unspecified (principal); F11.90 Opioid use, unspecified, uncomplicated
CPT/HCPCS: 36415; 80048; 80076; 81001; 83690; 84702; 85025; 87086; 99283; 99284

== ENCOUNTER 2024-05-18 17:15 | Emergency (ER) | payer OTHER, SELFPAY ==
[2024-05-18 17:48] VITALS: BP 125/77; PULSE 75; RESP 16; TEMP 36.9; O2SAT 98; BMI 33.7
--- NOTE | 2024-05-18 17:49 | ED.FEMALEGU ---
HPI - Female Genitourinary General Chief complaint: Urogenital-Female Stated complaint: ?UTI Time Seen by Provider: 05/18/24 19:08 Source: patient and RN notes reviewed Mode of arrival: ambulatory Limitations: no limitations History of Present Illness ED Provider: Jessica Byrd PA-C HPI Narrative: This is a 34-year-old female who presents emergency department with complaints of dysuria for the last 2 days. She took a at home urinalysis test which was positive for urinary tract infection. She states that she took a dose of azo. She denies any hematuria. She denies any fevers, chills, abdominal pain, nausea, vomiting or diarrhea. No back pain. Denies risk of . No Vaginal discharge. Denies any concern for STIs at this time. History of UTIs in the past, symptoms feel similar. No other complaints or concerns at this time. MD elicited complaint: UTI Onset (ago): day(s) Severity: mild Quality of pain: burning Consistency: constant Vaginal discharge: none Vaginal bleeding: none Urinary symptoms: Dysuria Exacerbating factors: urination Relieving factors: urination Associated symptoms: denies other symptoms Treatment prior to arrival: none Sexual activity: No Patient : No Related Data Previous Rx's ?Medication ?Instructions ?Recorded amoxicillin 875 mg-potassium 1 tab PO Q12H #20 tabs 08/07/20 clavulanate 125 mg tablet (Augmentin) naproxen 500 mg tablet 500 mg PO BID PRN pain #20 tabs 08/07/20 [id number] 3.3 4 drp otic (ear) right QID 7 days 08/07/20 mg-3 mg-10 mg-0.5 mg/mL ear #10 mL drops,susp (Cortisporin-TC) ondansetron 4 mg disintegrating 4 mg PO Q6-8H PRN nausea and 05/05/21 tablet vomiting #10 tabs ofloxacin 0.3 % eye drops (Ocuflox) See Rx Instructions ophthalmic 02/15/23 (eye) .COMPLEX #5 mL ibuprofen 600 mg tablet 600 mg PO Q6H PRN pain #14 tabs 05/19/23 omeprazole 20 mg capsule,delayed 20 mg PO DAILY #60 caps 07/08/23 release ondansetron 4 mg disintegrating 4 mg PO Q8H PRN nausea and 07/08/23 tablet vomiting #20 tabs cefuroxime axetil 250 mg tablet 250 mg PO BID 7 days #14 tabs 05/18/24 Allergies Allergy/AdvReac Type Severity Reaction Status Date / Time No Known Allergies Allergy Verified 05/18/24 17:51 [No Known Allergies*] Review of Systems Review of Systems: Yes all other systems are reviewed and are negative; No unobtainable due to endotracheal tube, Unobtainable due to mental condition, Unobtainable due to mental status or Other Constitutional: Constitutional: Reports as per [facility] Past Medical History Medical History No known health problems Social History Social History Patient Tobacco Use Status: Current everyday Tobacco user Substance Use Type: Marijuana Advance Directives: No Advance Directives Information Provided: No Do you have a plan to hurt others: No Plan Patient : No Physical Exam Vital Signs: Vital Signs: Last Vital Signs Temp 98.2 F 05/18/24 19:24 Pulse 75 05/18/24 19:24 Resp 16 05/18/24 19:24 BP 132/72 05/18/24 19:24 Pulse Ox 97 05/18/24 19:24 O2 Del Method Room Air 05/18/24 19:24 BMI result Body Mass Index 33.7 Const: General: cooperative, comfortable and no acute distress Orientation/consciousness: patient oriented x3 Limitations: no limitations HEENT: Head: Yes normal to inspection, Yes normocephalic and Yes atraumatic Ears: hearing grossly normal bilaterally General nose exam: Normal external nose present Face and sinus: Yes normal facial exam Mouth: Normal oral and palatal mucosa present, oropharynx normal and moist mucous membranes Throat: Yes posterior oropharynx normal Eyes: General: appearance normal, both eyes and all related structures Eyelids: Yes eyelids normal Conjunctivae: conjunctivae normal Sclerae: sclerae normal Pupils: Equal, round and reactive pupils present EOM: EOMs intact bilaterally Neck: Neck: Yes normal visual inspection, Yes full ROM and Yes no lymphadenopathy Lymphatic: no lymphadenopathy noted Chest: Chest palpation & inspection: normal inspection of the chest Resp: Effort & Inspection: normal respiratory effort and able to speak in complete sentences Auscultation: clear to auscultation bilaterally, no crackles, no rales, no rhonchi and no wheezes Cardio: Rate: regular rate Rhythm: regular rhythm Heart sounds: S1 normal heart sound present and S2 normal heart sound present GI: Other: Abdomen is soft, nontender, nondistended Inspection: Yes normal to inspection : General: Yes no CVA tenderness Back/Spine/Pelvis: Back: no CVA tenderness Skin: General skin exam: no rashes or lesions noted Trauma: no lacerations or abrasions Wounds: no wounds Neuro: General: patient oriented x3 and moves all extremities Cranial nerves: Yes Equal, round and reactive pupils present Extrem: General: Yes normal to inspection Right upper extremity: normal to inspection Left upper extremity: normal to inspection Right lower extremity: normal to inspection Left lower extremity: normal to inspection Medical Decision Making Medical Decision Making [facility] Narrative: This is a 34-year-old female who presents emergency department with complaints of dysuria, urinary frequency and urgency for the last 2 days. On arrival, vital signs within normal limits. She is speaking full sentences under no acute distress. Abdomen is soft and nontender. Urine revealing positive nitrites, leuk esterases, proteinuria, 1+ bacteria. Patient's symptoms consistent with a urinary tract infection. Will treat with course of cefuroxime. She is not . She denies any vaginal discharge. No concern for STI. She has no CVA tenderness or abdominal tenderness to suggest pyelonephritis or any other acute process. Strict return precaution, patient stable for discharge Differential Diagnosis Differential Diagnoses: The differential diagnosis associated with the presentation includes UTI, pyelonephritis, , ovarian torsion - unlikely Lab Data [facility] Lab Attestation statement: I reviewed the patient's lab results. Positive nitrites, leuk esterases, proteinuria, and 1+ bacteria, consistent with UTI. Negative urine Labs: Lab Results 05/18/24 Range/Units 18:11 Urine Color Dark Yellow Urine Appearance Turbid Urine pH 7.0 (5.0-9.0) Ur Specific [place] 1.025 (1.005-1.025) Urine Protein 30 (1+) H (Neg-Trace) mg/dL Urine Glucose (UA) Negative (Negative) mg/dL Urine Ketones Negative (Negative) mg/dL Urine Blood Negative (Negative) Urine Nitrite Positive H (Negative) Ur Leukocyte Esterase Moderate (2+) H (Negative) Urine RBC 0-2 (0-2) /HPF Urine WBC 6-10 (0-5) /HPF Ur Squamous Epith Cells 3-5 (0-2) /HPF Other Crystals Present Urine Bacteria 1+ (None Seen) Hyaline Casts 0-2 (0-2) /LPF Urine Test NEGATIVE (NEGATIVE) Discharge Plan Discharge Clinical Impression: Urinary tract infection Patient Disposition: Home, Self-Care Instructions: Urinary Tract Infection in Women (ED) Additional Instructions: You were seen in the ER and your urine does appear to be infected. Please take prescribed antibiotic as directed. Take twice a day for the next 7 days. Drink plenty of fluids get plenty of rest. We will call you if we need to switch your antibiotic. If any new or worsening symptoms occur including but not limited to worsening pain, fevers, severe abdominal pain, vomiting, chest pain, shortness for breath, please seek emergent care. Prescriptions: New cefuroxime axetil 250 mg tablet 250 mg PO BID 7 Days Qty: 14 0RF No Action amoxicillin-pot clavulanate [Augmentin] 875-125 mg tablet 1 tab PO Q12H Qty: 20 0RF Cortisporin-TC 3.3-3-10-0.5 mg/mL drops,suspension 4 drp otic (ear) right QID 7 Days Qty: 10 0RF naproxen 500 mg tablet 500 mg PO BID PRN (Reason: pain) Qty: 20 0RF ondansetron 4 mg tablet,disintegrating 4 mg PO Q6-8H PRN (Reason: nausea and vomiting) Qty: 10 0RF ofloxacin [Ocuflox] 0.3 % drops See Rx Instructions .ROUTE .COMPLEX Qty: 5 0RF Rx Instructions: put 1-2 drps into affected eye(s) every 2-4 h x 2 days, then 1-2 drps 4 times/day days 3-7 ibuprofen 600 mg tablet 600 mg PO Q6H PRN (Reason: pain) Qty: 14 0RF omeprazole 20 mg capsule,delayed release(DR/EC) 20 mg PO DAILY Qty: 60 0RF ondansetron 4 mg tablet,disintegrating 4 mg PO Q8H PRN (Reason: nausea and vomiting) Qty: 20 0RF Interventions: ED Discharge Assessment Last Done: 05/18/24 19:24 Discharge Date/Time: 05/18/24 19:25 Print Language: Occitan
[2024-05-18 18:31] LABS: Appearance Urine Turbid; Color Urine Dark Yellow; Glucose Urine UA Negative (Negative); Leukocyte Esterase Urine Moderate (2+) (Negative); Nitrite Urine Positive (Negative); Specific Gravity - Urine 1.025 (1.005-1.025); UMIC TRIGGER UACC YES; Urine Blood Negative (Negative); Urine Ketones Negative (Negative); Urine Protein 30 (1+) mg/dL (Neg-Trace)
[2024-05-18 18:36] LABS: UPreg QC Valid YES; Urine Pregnancy NEGATIVE (NEGATIVE)
[2024-05-18 18:49] LABS: Bacteria Urine 1+ (None Seen); Hyaline Casts Urine 0-2 /LPF (0-2); Other Crystals Urine Present; RBC Urine 0-2 /HPF (0-2); UACC Culture Trigger YES
[2024-05-18 19:12] VITALS: BP 132/72; PULSE 75; RESP 16; TEMP 36.8; O2SAT 97
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
[2024-05-18 19:24] VITALS: BP 132/72; PULSE 75; RESP 16; TEMP 36.8; O2SAT 97
== END 2024-05-18 19:25 | disposition home or self-care (01) ==
PROVIDERS: Physician Assistant Medical; Emergency Provider Emergency Medicine
DX: N39.0 Urinary tract infection, site not specified (principal); R30.0 Dysuria; F17.210 Nicotine dependence, cigarettes, uncomplicated; F12.90 Cannabis use, unspecified, uncomplicated
CPT/HCPCS: 81001; 81025; 87086; 99283